=== PATIENT | female | born 1985 | race Caucasian/White ===

== ENCOUNTER 2019-01-19 17:38 | Emergency (ER) | payer MEDICAID ==
[~2019-01-19] VITALS: Ht 172.7 cm; Wt 127.0 kg
[2019-01-19 18:01] VITALS: BP 123/79
--- NOTE | 2019-01-19 18:09 | NUR ---
PT AMBULATED TO ER BED 03
--- NOTE | 2019-01-19 18:10 | NUR ---
BIB SELF. AAO X4 C/O EPIGASTRIC PAIN THAT RADIATES TO LOWER LEFT QUADRANT AND BACK. PAIN 8/10 X 4 DAYS. PT STATES NAUSEA AND VOMITING X 4 DAYS. LAST FOOD INTAKE TODAY IN THE MORNING. DENIES DIARRHEA, DYSURIA, HEMATURIA. ABDOMEN NON TENDER TO TOUCH. ER MADE AWARE OF PT STATUS.
[2019-01-19] MEDS ORDERED: NACL 0.9% 1,000 ML IV SCH (18:32)
[2019-01-19] MEDS ORDERED: NACL 0.9% 1,000 ML IV ONE (18:32)
[2019-01-19] MEDS ORDERED: PROMETHAZINE 25 MG/ML VIAL IM ONE (18:35)
[2019-01-19] MEDS ORDERED: MORPHINE SULFATE 4 MG/ML SYR IVP ONE (18:35)
[2019-01-19] MEDS ORDERED: ONDANSETRON 4 MG/2 ML VIAL IVP ONE (18:35)
[2019-01-19] MEDS ORDERED: KETOROLAC 30 MG/ML VIAL IVP ONE (18:35)
[2019-01-19 18:44] LABS: APPEARANCE,URINE HAZY (CLEAR); BILIRUBIN,URINE NEGATIVE (NEGATIVE); BLOOD, URINE NEGATIVE (NEGATIVE); COLOR,URINE YELLOW (YELLOW); LEUKOCYTE ESTERASE ,URINE NEGATIVE (NEGATIVE); NITRITE, URINE NEGATIVE (NEGATIVE); UGLUCOSE NEGATIVE (NEGATIVE)
[2019-01-19 18:49] LABS: BARBITURATE, URINE NEG. ng/ml (NEG <=200); BENZODIAZEPINE, URINE NEG. ng/mL (NEG <=200); CANNABINOID, URINE POS. ng/mL (NEG <=50); COCAINE, URINE POS. ng/mL (NEG <=300); OPIATE, URINE NEG. ng/mL (NEG <=2000); PHENCYCLIDINE SCREEN,URINE NEG. ng/mL (NEG <=25)
[2019-01-19 19:03] LABS: BASOPHILS # (AUTO) 0.1 K/uL (0.00-0.22); EOSINOPHILS # (AUTO) 0.1 K/uL (0-0.4); EOSINOPHILS % (AUTO) 0.9 % (0.0-4.0); HEMOGLOBIN 12.7 g/dL (12.0-16.0); LYMPHOCYTES # (AUTO) 3.4 K/uL (2.5-16.5); LYMPHOCYTES % (AUTO) 35.7 % (20.5-51.1); MEAN CORPUSCULAR HEMOGLOBIN 28 pg (27-31); MEAN CORPUSCULAR HGB CONC 33 g/dL (33-37); MEAN CORPUSCULAR VOLUME 86.6 fL (80-94); MONOCYTES # (AUTO) 0.8 K/uL (0.8-1.0); NEUTROPHILS # (AUTO) 5.1 K/uL (1.8-7.7); NEUTROPHILS % (AUTO) 54.4 % (42.2-75.2); PLATELET COUNT (AUTO) 313 K/uL (140-450); RED BLOOD CELL COUNT(AUTO) 4.51 MIL/uL (4.20-5.40); RED CELL DISTRIBUTION WIDTH 12.9 % (11.6-13.7); WHITE BLOOD COUNT (AUTO) 9.4 K/uL (4.8-10.8)
[2019-01-19 19:13] LABS: ANION GAP 12.3 (8-16); CARBON DIOXIDE 27.3 mmol/L (21-32); POTASSIUM 3.6 mmol/L (3.5-5.1)
[2019-01-19 19:19] LABS: ALBUMIN 3.5 g/dL (3.4-5.0); TOTAL BILIRUBIN 0.4 mg/dL (0.0-1.0)
--- NOTE | 2019-01-19 19:23 | NUR ---
PT DECLINING MORPHINE AT THIS TIME. ER AWARE.
--- NOTE | 2019-01-19 19:47 | NUR ---
PT TAKEN TO CT VIA BED BY OPERATOR GR[employer]ED [employer]
--- NOTE | 2019-01-19 20:20 | NUR ---
PT TAKEN BACK FROM CT VIA BED TO THE ROOM
[2019-01-19] MEDS ORDERED: DICYCLOMINE HCL LIQUID 20 MG, ALUMINUM HYD/MAG/SIMETHICONE 30 ML, LIDOCAINE VISCOUS 2% ... PO ONE ×3 (20:55)
--- NOTE | 2019-01-19 21:07 | NUR ---
Pt report given to GIOVANA Olmedo. Transfer of care at this time.
--- NOTE | 2019-01-19 21:12 | NUR ---
Patient discharged with v/s stable. Written and verbal after care instructions given and explained. Patient alert, oriented and verbalized understanding of instructions. Ambulatory with steady gait. All questions addressed prior to discharge. ID band removed. Patient advised to follow up with PMD. Rx of BRADY TAYLOR given. Patient educated on indication of medication including possible reaction and side effects. Opportunity to ask questions provided and answered.
--- NOTE | 2019-01-19 21:12 | NUR ---
IV removed, catheter intact and site benign. Applied folded 4x4 gauze and tape to stop bleeding.
[2019-01-19 21:14] VITALS: BP 111/55
== END 2019-01-19 21:14 | disposition home or self-care (01) ==
LOC: MED 17:38
DX: R10.13 Epigastric pain (principal); R10.11 Right upper quadrant pain; R11.2 Nausea with vomiting, unspecified
CPT/HCPCS: 36415; 74176; 76705; 80053; 80305; 81003; 81025; 82150; 83690; 85025; 96361; 96372; 96374; 96375; 99284; J1885; J2405; J2550; J7030; Q0092; J2270

== ENCOUNTER 2019-05-11 20:20 | Emergency (ER) | payer MEDICAID ==
[~2019-05-11] VITALS: Ht 172.7 cm; Wt 122.5 kg
[2019-05-11 20:31] VITALS: BP 125/55
--- NOTE | 2019-05-11 21:15 | NUR ---
PA EVALUATING PT
[2019-05-11] MEDS ORDERED: DEXAMETHASONE 10 MG/ML VIAL IM ONE (21:20)
[2019-05-11] MEDS ORDERED: KETOROLAC 60 MG/2 ML VIAL IM ONE (21:20)
--- NOTE | 2019-05-11 21:20 | NUR ---
PT BIB SELF FOR SORE THROAT, COUGH. RR EVEN AND UNLABORED, BL BS CLEAR. PT HAS TAKEN OTC MEDS W/O RELIEF. PT SITTING IN CHAIR IN NO ACUTE DISTRESS. NO PMH
--- NOTE | 2019-05-11 22:15 | NUR ---
Patient discharged with v/s stable. Written and verbal after care instructions given and explained. Patient alert, oriented and verbalized understanding of instructions. Ambulatory with steady gait. All questions addressed prior to discharge. ID band removed. Patient advised to follow up with PMD. Rx of TESSALON PEARLES, CHLORASEPTIC, IBUPROFEN given. Patient educated on indication of medication including possible reaction and side effects. Opportunity to ask questions provided and answered.
[2019-05-11 22:18] VITALS: BP 127/50
== END 2019-05-11 22:15 | disposition home or self-care (01) ==
LOC: MED 20:20
DX: J02.9 Acute pharyngitis, unspecified (principal); R07.89 Other chest pain; F17.210 Nicotine dependence, cigarettes, uncomplicated
CPT/HCPCS: 96372; 99283; J1100; J1885

== ENCOUNTER 2019-11-18 17:06 | Emergency (ER) | payer MEDICAID ==
[~2019-11-18] VITALS: Ht 172.7 cm; Wt 119.3 kg
[2019-11-18 17:14] VITALS: BP 120/64
--- NOTE | 2019-11-18 17:38 | NUR ---
ERMD BEDSIDE EVALUATING PT
--- NOTE | 2019-11-18 17:38 | NUR ---
PT AMBULATED TO ER BED 6
[2019-11-18] MEDS ORDERED: KETOROLAC 60 MG/2 ML VIAL IM ONE (17:50)
--- NOTE | 2019-11-18 18:00 | NUR ---
C/O CONSTANT, NON RADIATING CHEST PAIN 6/10 AND PRESSURE LIKE. DENIES SOB, COUGH, N/V/D. NOT EXACERBATED OR EASED BY ANYTHING. PT STATES SHE HAS BEEN SWEATING ALOT AT HOME, BUT SKIN IS COOL/DRY AT THIS TIME. NO ACUTE DISTRESS NOTED. BED IN LOW POSITION, PT PLACED ON BEDSIDE INDUSTRIAL TRAINER AT THIS TIME.
[2019-11-18 19:18] VITALS: BP 119/68
--- NOTE | 2019-11-18 19:19 | NUR ---
Patient discharged with v/s stable. Written and verbal after care instructions given and explained. Patient alert, oriented and verbalized understanding of instructions. Ambulatory with . All questions addressed prior to discharge. ID band removed. Patient advised to follow up with PMD. Rx of IBUPROFEN given. Patient educated on indication of medication including possible reaction and side effects. Opportunity to ask questions provided and answered.
== END 2019-11-18 19:18 | disposition home or self-care (01) ==
LOC: MED 17:06
DX: R07.89 Other chest pain (principal); M25.512 Pain in left shoulder; M54.2 Cervicalgia; R50.9 Fever, unspecified; F17.200 Nicotine dependence, unspecified, uncomplicated
CPT/HCPCS: 71045; 93005; 96372; 99283; J1885

== ENCOUNTER 2021-07-05 16:23 | Emergency (ER) | payer MEDICAID | END 2021-07-05 17:50 | disposition home or self-care (01) | LOC: MED 16:23 | DX: K08.89 Other specified disorders of teeth and supporting structures (principal); Z53.21 Procedure and treatment not carried out due to patient leaving prior to being seen by health care provider ==

== ENCOUNTER 2023-04-17 08:25 | Emergency (ER) | payer MEDICAID ==
[~2023-04-17] VITALS: Ht 172.7 cm; Wt 127.5 kg
[2023-04-17 08:52] VITALS: BP 132/75; PULSE 66; RESP 18; TEMP 97.5; O2SAT 100
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
--- NOTE | 2023-04-17 09:04 | NUR ---
TO ER BED 11
[2023-04-17] MEDS ORDERED: KETOROLAC 60 MG/2 ML VIAL IM ONE (09:40)
--- NOTE | 2023-04-17 09:47 | NUR ---
Ultrasound at bedside.
--- NOTE | 2023-04-17 10:04 | NUR ---
Labs drawn, walked to lab.
[2023-04-17 10:18] LABS: BASOPHILS # (AUTO) 0.1 K/uL (0.00-0.22); BASOPHILS % (AUTO) 0.7 % (0.0-2.0); EOSINOPHILS # (AUTO) 0.1 K/uL (0-0.4); EOSINOPHILS % (AUTO) 1.2 % (0.0-4.0); HEMATOCRIT 36.8 % (36-48); HEMOGLOBIN 12.1 g/dL (12.0-16.0); LYMPHOCYTES # (AUTO) 2.6 K/uL (2.5-16.5); LYMPHOCYTES % (AUTO) 32.2 % (20.5-51.1); MEAN CORPUSCULAR HEMOGLOBIN 28 pg (27-31); MEAN CORPUSCULAR HGB CONC 33 g/dL (33-37); MEAN CORPUSCULAR VOLUME 84.8 fL (80-94); MONOCYTES # (AUTO) 0.6 K/uL (0.8-1.0); MONOCYTES % (AUTO) 7.2 % (1.7-9.3); NEUTROPHILS # (AUTO) 4.7 K/uL (1.8-7.7); NEUTROPHILS % (AUTO) 58.7 % (42.2-75.2); PLATELET COUNT (AUTO) 317 K/uL (140-450); RED BLOOD CELL COUNT(AUTO) 4.33 MIL/uL (4.20-5.40); RED CELL DISTRIBUTION WIDTH 13.1 % (11.6-13.7)
[2023-04-17 10:43] LABS: ALBUMIN 3.6 g/dL (3.4-5.0); ANION GAP 13.4 (8-16); CARBON DIOXIDE 24.8 mmol/L (21-32); CREATININE 0.8 mg/dL (0.6-1.3); POTASSIUM 4.2 mmol/L (3.5-5.1)
[2023-04-17 10:56] LABS: TOTAL BILIRUBIN 0.1 mg/dL (0.0-1.0)
--- NOTE | 2023-04-17 11:23 | NUR ---
Dr. Marlow re-evaluating patient at bedside.
[2023-04-17] MEDS ORDERED: FAMO-90 PO (12:28)
[2023-04-17] MEDS ORDERED: TRAM50TA3 PO (12:28)
[2023-04-17 12:41] VITALS: TEMP 97.5
--- NOTE | 2023-04-17 12:41 | NUR ---
Patient discharged with v/s stable. Written and verbal after care instructions given and explained. Patient alert, oriented and verbalized understanding of instructions. Ambulatory with steady gait. All questions addressed prior to discharge. ID band removed. Patient advised to follow up with PMD. Rx of PEPCID, TRAMADOL HCL (SENT) given. Patient educated on indication of medication including possible reaction and side effects. Opportunity to ask questions provided and answered. WORK NOTE AND COPY OF LABS/IMAGING GIVEN
[2023-04-17 12:42] VITALS: BP 118/63; PULSE 64; RESP 14; O2SAT 99
--- NOTE | 2023-04-17 12:44 | NUR ---
The patient's care was reviewed and supervised by Belen White, RN, RN.
== END 2023-04-17 12:41 | disposition home or self-care (01) ==
LOC: MED 08:25
DX: R10.13 Epigastric pain (principal); Z79.899 Other long term (current) drug therapy
CPT/HCPCS: 36415; 76705; 80053; 81002; 81025; 82150; 83690; 84484; 84703; 85025; 93005; 96372; 99285; J1885; Q0092

== ENCOUNTER 2023-04-25 17:44 | Emergency (ER) | payer OTHER, MEDICAID ==
[~2023-04-25] VITALS: Ht 172.7 cm; Wt 126.7 kg
[~2023-04-25 17:44] MED LIST: FAMO-90 PO; TRAM50TA3 PO
[2023-04-25 18:15] VITALS: BP 127/74; PULSE 80; RESP 20; TEMP 98.6; O2SAT 100
[2023-04-25] MEDS ORDERED: IBUPROFEN 600 MG TAB PO ONE (19:40)
[2023-04-25 20:04] LABS: APPEARANCE,URINE CLEAR (CLEAR); BILIRUBIN,URINE NEGATIVE (NEGATIVE); BLOOD, URINE NEGATIVE (NEGATIVE); COLOR,URINE YELLOW (YELLOW); LEUKOCYTE ESTERASE ,URINE NEGATIVE (NEGATIVE); NITRITE, URINE NEGATIVE (NEGATIVE); UGLUCOSE NEGATIVE (NEGATIVE)
[2023-04-25] MEDS ORDERED: IBUP-2213 PO (21:01)
[2023-04-25] MEDS ORDERED: ONDA-188 PO (21:12)
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
[2023-04-25 21:53] VITALS: BP 122/79; PULSE 78; RESP 18; TEMP 98.6; O2SAT 100
[2023-04-25] MEDS: KETOROLAC 30 MG/ML VIAL IM ONE (21:55)
[2023-04-25] MEDS: ONDANSETRON 4 MG ODT PO ONE (21:56)
== END 2023-04-25 21:53 | disposition home or self-care (01) ==
LOC: MED 17:44
DX: S39.012A Strain of muscle, fascia and tendon of lower back, initial encounter (principal); S16.1XXA Strain of muscle, fascia and tendon at neck level, initial encounter; Z79.899 Other long term (current) drug therapy; Z79.1 Long term (current) use of non-steroidal anti-inflammatories (NSAID); Z88.1 Allergy status to other antibiotic agents; V89.2XXA Person injured in unspecified motor-vehicle accident, traffic, initial encounter; Y93.89 Activity, other specified; Y92.410 Unspecified street and highway as the place of occurrence of the external cause; Y99.8 Other external cause status
CPT/HCPCS: 72052; 72110; 81003; 81025; 96372; 99284; J1885; Q0162

== ENCOUNTER 2024-03-16 12:50 | Emergency (ER) | payer MEDICAID ==
[~2024-03-16] VITALS: Ht 172.7 cm; Wt 135.6 kg
[~2024-03-16 12:50] MED LIST changes: +IBUP-2213 PO; +ONDA-188 PO
[2024-03-16 12:58] VITALS: BP 135/78; PULSE 72; RESP 17; TEMP 97.7; O2SAT 99
[2024-03-16 14:13] LABS: BASOPHILS # (AUTO) 0.1 K/uL (0.00-0.22); BASOPHILS % (AUTO) 0.5 % (0.0-2.0); EOSINOPHILS # (AUTO) 0.4 K/uL (0-0.4); EOSINOPHILS % (AUTO) 2.7 % (0.0-4.0); HEMATOCRIT 40.2 % (36-48); HEMOGLOBIN 12.7 g/dL (12.0-16.0); LYMPHOCYTES # (AUTO) 3.1 K/uL (2.5-16.5); LYMPHOCYTES % (AUTO) 22.5 % (20.5-51.1); MEAN CORPUSCULAR HEMOGLOBIN 27 pg (27-31); MEAN CORPUSCULAR HGB CONC 32 g/dL (33-37); MEAN CORPUSCULAR VOLUME 84.9 fL (80-94); MONOCYTES # (AUTO) 1.1 K/uL (0.8-1.0); MONOCYTES % (AUTO) 7.8 % (1.7-9.3); NEUTROPHILS # (AUTO) 9.1 K/uL (1.8-7.7); NEUTROPHILS % (AUTO) 66.5 % (42.2-75.2); PLATELET COUNT (AUTO) 408 K/uL (140-450); RED BLOOD CELL COUNT(AUTO) 4.73 MIL/uL (4.20-5.40); WHITE BLOOD COUNT (AUTO) 13.6 K/uL (4.8-10.8)
[2024-03-16 14:21] LABS: ANION GAP 14.5 (8-16); CALCIUM 9.4 mg/dL (8.5-10.1); CARBON DIOXIDE 26.7 mmol/L (21-32); CREATININE 0.7 mg/dL (0.6-1.3); POTASSIUM 4.2 mmol/L (3.5-5.1)
[2024-03-16 14:32] LABS: ALANINE AMINOTRANSFERASE 41 U/L (12-78); ALBUMIN 3.7 g/dL (3.4-5.0); ALKALINE PHOSPHATASE 121 U/L (50-136); ASPARTATE AMINOTRANSFERASE 21 U/L (15-37); BILIRUBIN,DIRECT 0.1 mg/dL (0.0-0.3); LIPASE 38 U/L (16-77); TOTAL BILIRUBIN 0.2 mg/dL (0.0-1.0); TOTAL PROTEIN, SERUM 8.1 g/dL (6.4-8.2)
[2024-03-16 16:55] VITALS: BP 114/58; PULSE 75; RESP 18; TEMP 36.66960; O2SAT 98
== END 2024-03-16 16:55 | disposition home or self-care (01) ==
LOC: MED 12:50
DX: R07.89 Other chest pain (principal); R22.43 Localized swelling, mass and lump, lower limb, bilateral; F41.9 Anxiety disorder, unspecified; R00.2 Palpitations; K21.9 Gastro-esophageal reflux disease without esophagitis; R03.0 Elevated blood-pressure reading, without diagnosis of hypertension; Z79.1 Long term (current) use of non-steroidal anti-inflammatories (NSAID); Z79.899 Other long term (current) drug therapy; Z88.1 Allergy status to other antibiotic agents
CPT/HCPCS: 36415; 71045; 80048; 80076; 81025; 83690; 83880; 84484; 85025; 93005; 93971; 99285; Q0092